=== PATIENT | female | born 1995 | race Caucasian/White ===

== ENCOUNTER 2022-04-12 01:36 | Day surgery (SDC) | payer BC, OTHER ==
[2022-04-12 03:36] LABS: Bilirubin Neg (Negative); Blood, Urine Negative (Negative); Clarity Clear (Clear); Glucose, Urine (Dipstick) Normal (Negative); Ketone, Urine Negative (Negative); Leukocyte Negative (Negative); Nitrite Negative (Negative); Protein, Urine (Dipstick) Negative (Neg-Trace); Urobilinogen Normal mg/dL (Less than 2)
[2022-04-12] MEDS ORDERED: Ondansetron PF 4 MG/2 ML Vial ONE (03:38)
[2022-04-12] MEDS ORDERED: Acetaminophen 500 MG TAB ONE (05:16)
[2022-04-12] MEDS ORDERED: hydrALAZINE 20 MG/ML VIAL SLOW IVP PRN (06:19)
[2022-04-12] MEDS ORDERED: diphenhydrAMINE 50 MG/ML VIAL IVP SCH (06:30)
[2022-04-12] MEDS ORDERED: Metoclopramide HCl 10 MG/2 ML VIAL IVP SCH (06:45)
[2022-04-12 06:47] VITALS: BMI 26.7
[2022-04-12 07:05] LABS: #Monocytes 0.4 10x3/uL (0.0-1.1); %Basophils 0.1 % (0.0-2.0); %Eosinophils 0.2 % (0.0-6.0); %Lymphocytes 12.5 % (18.0-47.0); %Monocytes 3.2 % (0.0-10.0); %Neutrophils 83.4 % (40.0-75.0); Hemoglobin 10.7 g/dL (12.0-15.5); Mean Corpuscular Hemoglobin 29.9 pg (27.0-33.0); Platelet Count 223 10x3/uL (150-450); RBC Distribution Width 11.9 % (11.5-14.5); Red Blood Cell (RBC) Count 3.58 10x6/uL (3.90-5.03); White Blood Cell (WBC) Count 13.2 10x3/uL (3.5-10.5)
[2022-04-12 07:17] LABS: ALT (SGPT) 12 U/L (8-55); AST (SGOT) 24 U/L (5-34); Albumin 3.4 g/dL (3.5-5.0); Alkaline Phosphatase 94 U/L (40-110); Anion Gap 15 mmol/L (10-20); BUN (Urea Nitrogen) 5 mg/dL (7.0-18.7); Bilirubin, Total 0.1 mg/dL (0.2-1.2); Calc. Creatinine Clearance 147 mL/min (70-130); Calcium 9.3 mg/dL (7.8-10.44); Carbon Dioxide 21 mmol/L (22-29); Chloride 107 mmol/L (98-107); Estimated GFR 113; Glucose 112 mg/dL (70-105); Protein, Total 6.4 g/dL (6.0-8.3); Sodium 139 mmol/L (136-145)
== END 2022-04-12 10:17 | disposition home or self-care (01) ==
LOC: CSHERS 01:36 → CSHLD/OP 05:56 → CSHLAB 05:57 → CSHLD/OP 10:17
PROVIDERS: ATTEND Obstetrics & Gynecology
DX: O99.891 Other specified diseases and conditions complicating pregnancy (principal); R51.9 Headache, unspecified; O99.013 Anemia complicating pregnancy, third trimester; D64.9 Anemia, unspecified; Z3A.36 36 weeks gestation of pregnancy
CPT/HCPCS: 36415; 80053; 81003; 85025; 96360; 96361; 96375; 99282; J1200; J2405; J2765; J3475

== ENCOUNTER 2022-04-21 11:02 | Inpatient (IN) | payer BC, OTHER ==
[~2022-04-21 11:02] MED LIST: Bupivacaine 0.25% HCL 30 ML VIAL ONE
[2022-04-21] MEDS ORDERED: Carboprost 250 MCG/ML AMP IM PRN (11:04)
[2022-04-21] MEDS ORDERED: Acetaminophen 500 MG TAB PO PRN (11:04)
[2022-04-21] MEDS ORDERED: Promethazine HCl 25 MG/ML VIAL IM PRN ×2 (11:04→13:41)
[2022-04-21] MEDS ORDERED: Docusate 100 MG CAP PO PRN (11:04)
[2022-04-21] MEDS ORDERED: Lidocaine 1% (PF) 30 ML VIAL SC PRN (11:04)
[2022-04-21] MEDS ORDERED: Butorphanol Tartrate 1 MG/ML VIAL SLOW IVP PRN (11:04)
[2022-04-21] MEDS ORDERED: Ondansetron PF 4 MG/2 ML Vial IVP PRN ×3 (11:04→18:18)
[2022-04-21] MEDS ORDERED: Diphenoxylate HCl/Atropine Tablet PO PRN ×2 (11:04)
[2022-04-21] MEDS ORDERED: Misoprostol 200 MCG TAB PR PRN (11:04)
[2022-04-21] MEDS ORDERED: Ibuprofen 800 MG TAB PO PRN (11:04)
[2022-04-21] MEDS ORDERED: HYDROcodone/Acetaminophen 5/325 mg Tablet PO PRN ×4 (11:04→18:18)
[2022-04-21] MEDS ORDERED: hydrALAZINE 20 MG/ML VIAL SLOW IVP PRN ×2 (11:04→18:18)
[2022-04-21] MEDS ORDERED: Lactated Ringer's 1,000 ML IV SCH (11:15)
[2022-04-21] MEDS ORDERED: NS w/ Oxytocin 30 units 500 ML IV SCH ×3 (11:15→18:30)
[2022-04-21] MEDS ORDERED: Penicillin G Potassium 5 MILL.UNITS in Sodium Chloride 0.9% 100 ML IVPB SCH (11:15)
[2022-04-21] MEDS ORDERED: Fentanyl 2 mcg/Bup 0.1% Cadd 100 ML ONE (12:19)
[2022-04-21 12:36] VITALS: BMI 26.2
[2022-04-21 12:38] LABS: Hemoglobin 10.9 g/dL (12.0-15.5); Mean Corpuscular HGB CONC 33.4 g/dL (32.0-36.0); Mean Corpuscular Hemoglobin 29.4 pg (27.0-33.0); Mean Corpuscular Volume 87.9 fl (81.6-98.3); Mean Platelet Volume 10.1 fl (7.4-10.4); Platelet Count 302 10x3/uL (150-450); RBC Distribution Width 12.2 % (11.5-14.5); Red Blood Cell (RBC) Count 3.71 10x6/uL (3.90-5.03); White Blood Cell (WBC) Count 10.8 10x3/uL (3.5-10.5)
[2022-04-21 13:04] LABS: SARS-CoV-2 NAA Rapid Test Not Detected (NotDetected)
[2022-04-21 13:11] LABS: Syphilis Antibody Nonreactive (Nonreactive); Syphilis Antibody Index 0.05 S/CO (<1.00 Non-Reactive)
[2022-04-21 13:12] LABS: HBSAg Index 0.18 S/CO (0-0.99); HIV (1/2) Antibody/Antigen Non-Reactive (NonReactive); HIV 1/2 INDEX 0.08 S/CO (<1.00); Hep B Surf Ag Non-Reactive S/CO (NonReactive)
[2022-04-21] MEDS ORDERED: Moisturizing Cream (Eucerin) 113 GM JAR TOP PRN (13:41)
[2022-04-21] MEDS ORDERED: ePHEDrine Sulfate 50 MG/10 ML VIAL SLOW IVP PRN (13:41)
[2022-04-21] MEDS ORDERED: Lactated Ringer's 500 ML IV PRN (13:41)
[2022-04-21] MEDS ORDERED: diphenhydrAMINE 50 MG/ML VIAL IVP PRN (13:41)
[2022-04-21] MEDS ORDERED: Naloxone HCl 0.4 mg/ml Vial IVP PRN ×2 (13:41)
[2022-04-21] MEDS ORDERED: Acetaminophen 325 MG TAB PO PRN ×2 (13:41→18:19)
[2022-04-21] MEDS ORDERED: Fentanyl 2 mcg/Bupivacaine 0.1% Cassette 100 ML EPIDURAL SCH (13:45)
[2022-04-21] MEDS ORDERED: Communication Order-Pharmacy FS SCH (13:45)
[2022-04-21] MEDS ORDERED: Penicillin G 2.5 MILL.units 2.5 MILL.UNITS in Premix Bag 1 BAG IVPB SCH (15:15)
[2022-04-21] MEDS ORDERED: Preparation H Ointment 28 GM TUBE PR PRN (18:18)
[2022-04-21] MEDS ORDERED: diphenhydrAMINE 25 MG CAP PO PRN (18:18)
[2022-04-21] MEDS ORDERED: Lanolin Ointment 7 GM TUBE TOP PRN (18:18)
[2022-04-21] MEDS ORDERED: Zolpidem Tartrate 5 MG TAB PO PRN (18:18)
[2022-04-21] MEDS ORDERED: Misoprostol 200 MCG TAB VAG PRN (18:18)
[2022-04-21] MEDS ORDERED: Benzocaine-Menthol 82.5 ML CAN TOP PRN (18:18)
[2022-04-21] MEDS ORDERED: Bisacodyl 10 MG SUPP PR PRN (18:18)
[2022-04-21] MEDS ORDERED: Milk Of Magnesia 30 ML UDCUP PO PRN (18:18)
[2022-04-21] MEDS ORDERED: Witch Hazel-Glycerin 1 EACH JAR TOP PRN (18:19)
[2022-04-21] MEDS ORDERED: Boostrix 0.5 ML (Tdap) VIAL (>/=7 yrs of age) IM ONE (18:30)
[2022-04-21] MEDS: Docusate 100 MG CAP PO SCH (21:57)
[2022-04-22] MEDS: Ibuprofen 800 MG TAB PO SCH ×3 (00:57→13:21)
[2022-04-22] MEDS: Ferrous Sulfate 325 MG TAB PO SCH ×2 (08:11→15:28)
[2022-04-22] MEDS: Docusate 100 MG CAP PO SCH (08:45)
[2022-04-22] MEDS ORDERED: Prenatal Vitamin 1 TAB PO SCH (09:00)
[2022-04-22 21:00] VITALS: BP 123/81; TEMP 98
== END 2022-04-22 20:35 | disposition home or self-care (01) | DRG 807 ==
LOC: CSHLD 11:02 → CSHPP 20:45
PROVIDERS: ADMIT Obstetrics & Gynecology; ATTEND Obstetrics & Gynecology
PROC: 10E0XZZ Delivery of Products of Conception, External Approach (ICD-10-PCS; principal; 2022-04-21)
PROC: 0W8NXZZ Division of Female Perineum, External Approach (ICD-10-PCS; 2022-04-21)
PROC: 10907ZC Drainage of Amniotic Fluid, Therapeutic from Products of Conception, Via Natural or Artificial Opening (ICD-10-PCS; 2022-04-21)
DX: O99.824 Streptococcus B carrier state complicating childbirth (principal); Z37.0 Single live birth; Z3A.37 37 weeks gestation of pregnancy; Z20.822 Contact with and (suspected) exposure to COVID-19; O99.02 Anemia complicating childbirth; D64.9 Anemia, unspecified; O35.1 Maternal care for (suspected) chromosomal abnormality in fetus; Z98.890 Other specified postprocedural states; Z79.899 Other long term (current) drug therapy; O71.82 Other specified trauma to perineum and vulva
CPT/HCPCS: 51702; 85027; 86780; 86850; 86900; 86901; 87340; 87389; J2540; J2590; J3490; J7120; S0020; U0002